=== PATIENT | female | born 1950 | race Caucasian/White ===

== ENCOUNTER 2019-07-14 15:27 | Inpatient (IN) ==
[2019-07-14 15:51] LABS: Basophils # 0.1 10*3/uL (0.0-0.2); Basophils % 0.9 % (0.0-0.8); Eosinophils # 0.2 10*3/uL (0.0-0.87); Eosinophils % 3.3 % (0.00-10.9); Hematocrit 28.8 VOL% (35.7-47.0); Hemoglobin 8.5 GM/DL (12.0-16.0); Immature Granulocytes % 0.3 %; Immature Granulocytes Absolute 0.02 #; Lymphocytes # 1.5 10*3/uL (1.4-4.0); Lymphocytes % 20.9 % (21.3-54.2); Mean Corpuscular HGB Conc 29.5 GM/DL (32-36); Mean Corpuscular Volume 76.4 FL (87-102); Mean Platelet Volume 10.9 FL (9.6-12.0); Monocytes % 8.7 % (1.7-12.7); Neutrophils % 65.9 % (38.7-73.9); Platelet Count 312 T/CUMM (130-400); Red Blood Count 3.77 MC/CUMM (3.8-5.5); Red Cell Distribution Width 17.4 % (9.3-17.3); White Blood Count 7.4 T/CUMM (4-12)
[2019-07-14 16:07] LABS: PT Patient Result 10.7 SECS (9.6-12.2)
[2019-07-14 16:18] LABS: Alanine Aminotransferase 14 U/L (13-56); Albumin 3.7 G/DL (3.4-5.0); Alkaline Phosphatase 61 U/L (45-117); Aspartate Amino Transferase 14 U/L (0-37); Bilirubin,Total < 0.39 MG/DL (0.2-1.0); Blood Urea Nitrogen 25 MG/DL (7-18); Estimated Glom Filtration Rate 69 ML/MIN; Glucose 112 MG/DL (74-106); Osmolality,Calculated 281.5 MOS/KG (273-304); Total Protein 7.6 G/DL (6.4-8.3)
[2019-07-14] MEDS ORDERED: ONDANSETRON 4 MG/2 ML VIAL IV PRN ×2 (17:31→23:25)
[2019-07-14] MEDS ORDERED: MAGNESIUM HYDROXIDE SUSP 30 ML UDCUP PO PRN ×2 (17:31→23:25)
[2019-07-14] MEDS ORDERED: BISACODYL 5 MG TABLET PO PRN (17:31)
[2019-07-14 18:26] LABS: Anisocytosis 1+; Hypochromasia 3+; Polychromasia Slight
[2019-07-14 18:27] LABS: Microcytosis 2+; Platelet Estimate Normal; Poikilocytosis Few
[2019-07-14] MEDS ORDERED: ROPIVACAINE 0.5% 30 ML VIAL ONE (19:15)
[2019-07-14] MEDS ORDERED: ceFAZolin 1,000 MG VIAL ONE (20:28)
[2019-07-14] MEDS ORDERED: propofoL 200 MG/20 ML VIAL IV ONE (22:41)
[2019-07-14] MEDS ORDERED: LIDOCAINE 2% 5 ML VIAL ONE (22:41)
[2019-07-14] MEDS ORDERED: fentaNYL 100 MCG/2 ML VIAL ONE (22:42)
[2019-07-14] MEDS ORDERED: SEVOFLURANE 1 UNIT/15 MINUTE INH ONE (22:42)
[2019-07-14] MEDS ORDERED: DEXAMETHASONE 4 MG/1 ML VIAL ONE (22:42)
[2019-07-14] MEDS ORDERED: PHENYLEPHRINE 1 MG/10 ML SYRINGE IV ONE (22:42)
[2019-07-14] MEDS ORDERED: MIDAZOLAM 2 MG/2 ML VIAL ONE (22:42)
[2019-07-14] MEDS ORDERED: ONDANSETRON 4 MG/2 ML VIAL ONE (22:42)
[2019-07-14] MEDS ORDERED: SUCCINYLCHOLINE 200 MG/10 ML VIAL ONE (22:43)
[2019-07-14] MEDS ORDERED: ROCURONIUM 100 MG/10 ML VIAL IV ONE (22:43)
[2019-07-14] MEDS ORDERED: PROMETHAZINE 25 MG/1 ML VIAL IM PRN (23:25)
[2019-07-14 23:30] LABS: Hematocrit 25.7 VOL% (35.7-47.0); Hemoglobin 7.9 GM/DL (12.0-16.0)
[2019-07-14] MEDS: GABAPENTIN 600 MG TABLET PO SCH (23:46)
[2019-07-14] MEDS: MORPHINE 4 MG/1 ML VIAL IV PRN (23:57)
[2019-07-14] MEDS: SODIUM CHLORIDE 0.9% 1,000 ML IV SCH (23:58)
[2019-07-15] MEDS: MORPHINE 4 MG/1 ML VIAL IV PRN (05:30)
[2019-07-15 06:24] LABS: Basophils % 0.1 % (0.0-0.8); Hemoglobin 7.8 GM/DL (12.0-16.0); Immature Granulocytes % 0.5 %; Immature Granulocytes Absolute 0.06 #; Lymphocytes # 0.6 10*3/uL (1.4-4.0); Lymphocytes % 4.7 % (21.3-54.2); Mean Corpuscular Volume 75.4 FL (87-102); Mean Platelet Volume 11.2 FL (9.6-12.0); Monocytes % 5.2 % (1.7-12.7); Neutrophils % 89.5 % (38.7-73.9); Platelet Count 330 T/CUMM (130-400); Red Blood Count 3.45 MC/CUMM (3.8-5.5); Red Cell Distribution Width 17.6 % (9.3-17.3); White Blood Count 12.9 T/CUMM (4-12)
[2019-07-15 06:26] LABS: Calcium 8.1 MG/DL (8.5-10.1); Osmolality,Calculated 284.4 MOS/KG (273-304)
[2019-07-15 07:02] LABS: Band Neutrophils 3 % (0-10); Lymphocytes 3 % (20-55); Segmented Neutrophils 91 % (50-85); Total Cells Counted 100
[2019-07-15 07:03] LABS: Anisocytosis 1+; Hypochromasia 1+; Ovalocytes 1+; Platelet Estimate Normal
[2019-07-15] MEDS: GLUCOSAMINE 500 MG TABLET PO SCH (09:19)
[2019-07-15] MEDS: CALCIUM (CARBONATE)/VITAMIN D 600 MG-400 UNIT TABLET PO SCH (09:19)
[2019-07-15] MEDS: MULTIVITAMIN (CENTRUM) TABLET PO SCH (09:19)
[2019-07-15] MEDS: ASPIRIN 325 MG TABLET PO SCH (09:19)
[2019-07-15] MEDS: DOCUSATE SODIUM 100 MG CAPSULE PO SCH ×2 (09:19→20:56)
[2019-07-15] MEDS: SODIUM CHLORIDE 0.9% 1,000 ML IV SCH ×2 (09:20→14:56)
[2019-07-15] MEDS: ESTRADIOL 1 MG TABLET PO SCH (09:20)
[2019-07-15] MEDS: ceFAZolin 1,000 MG in SYRINGE 1 EACH IV SCH ×2 (13:43→20:55)
[2019-07-15] MEDS: GABAPENTIN 600 MG TABLET PO SCH (20:56)
[2019-07-15] MEDS ORDERED: ceFAZolin 1,000 MG in SYRINGE 1 EACH IV SCH (21:00)
[2019-07-16] MEDS: SODIUM CHLORIDE 0.9% 1,000 ML IV SCH ×2 (04:53→13:48)
[2019-07-16] MEDS: CALCIUM (CARBONATE)/VITAMIN D 600 MG-400 UNIT TABLET PO SCH (08:24)
[2019-07-16] MEDS: DOCUSATE SODIUM 100 MG CAPSULE PO SCH ×2 (08:24→21:03)
[2019-07-16] MEDS: ESTRADIOL 1 MG TABLET PO SCH (08:24)
[2019-07-16] MEDS: MULTIVITAMIN (CENTRUM) TABLET PO SCH (08:25)
[2019-07-16] MEDS: GLUCOSAMINE 500 MG TABLET PO SCH (08:25)
[2019-07-16] MEDS: ASPIRIN 325 MG TABLET PO SCH (08:26)
[2019-07-16 09:58] LABS: Basophils % 0.4 % (0.0-0.8); Eosinophils # 0.1 10*3/uL (0.0-0.87); Eosinophils % 0.8 % (0.00-10.9); Hematocrit 24.2 VOL% (35.7-47.0); Immature Granulocytes % 0.4 %; Immature Granulocytes Absolute 0.03 #; Lymphocytes # 1.3 10*3/uL (1.4-4.0); Mean Corpuscular HGB Conc 28.9 GM/DL (32-36); Mean Corpuscular Volume 78.8 FL (87-102); Mean Platelet Volume 10.1 FL (9.6-12.0); Monocytes % 7.4 % (1.7-12.7); Platelet Count 292 T/CUMM (130-400); Red Blood Count 3.07 MC/CUMM (3.8-5.5); Red Cell Distribution Width 18.2 % (9.3-17.3); White Blood Count 8.3 T/CUMM (4-12)
[2019-07-16 10:17] LABS: Anisocytosis 1+; Hypochromasia 1+; Microcytosis 1+; Ovalocytes Slight
[2019-07-16 10:18] LABS: Platelet Estimate Normal
[2019-07-16] MEDS ORDERED: SODIUM CHLORIDE 0.9% 1,000 ML IV PRN (14:59)
[2019-07-16] MEDS: GABAPENTIN 600 MG TABLET PO SCH (21:01)
[2019-07-17] MEDS: SODIUM CHLORIDE 0.9% 1,000 ML IV SCH ×4 (01:45→21:52)
[2019-07-17 06:26] LABS: Hematocrit 29.7 VOL% (35.7-47.0)
[2019-07-17] MEDS: DOCUSATE SODIUM 100 MG CAPSULE PO SCH ×2 (09:48→20:19)
[2019-07-17] MEDS: CALCIUM (CARBONATE)/VITAMIN D 600 MG-400 UNIT TABLET PO SCH (09:48)
[2019-07-17] MEDS: ASPIRIN 325 MG TABLET PO SCH (09:50)
[2019-07-17] MEDS: MULTIVITAMIN (CENTRUM) TABLET PO SCH (09:50)
[2019-07-17] MEDS: ESTRADIOL 1 MG TABLET PO SCH (09:50)
[2019-07-17] MEDS: GLUCOSAMINE 500 MG TABLET PO SCH (09:54)
[2019-07-17] MEDS: GABAPENTIN 600 MG TABLET PO SCH (20:19)
[2019-07-18] MEDS: SODIUM CHLORIDE 0.9% 1,000 ML IV SCH ×2 (07:30→12:51)
[2019-07-18 07:58] VITALS: BP 141/59
[2019-07-18] MEDS: MULTIVITAMIN (CENTRUM) TABLET PO SCH (09:16)
[2019-07-18] MEDS: DOCUSATE SODIUM 100 MG CAPSULE PO SCH (09:16)
[2019-07-18] MEDS: ASPIRIN 325 MG TABLET PO SCH (09:17)
[2019-07-18] MEDS: GLUCOSAMINE 500 MG TABLET PO SCH (09:17)
[2019-07-18] MEDS: ESTRADIOL 1 MG TABLET PO SCH (09:17)
[2019-07-18] MEDS: CALCIUM (CARBONATE)/VITAMIN D 600 MG-400 UNIT TABLET PO SCH (09:17)
== END 2019-07-18 13:36 | disposition swing bed (61) | DRG 481 ==
LOC: EDBD → EDUNIT# → N.EDINP 15:27 → N.ED 15:27 → N.EDINP 19:05 → N.3E 23:13
PROVIDERS: ADMIT Orthopaedic Surgery; ATTEND Orthopaedic Surgery